=== PATIENT | female | born 1970 | race Caucasian/White ===

== ENCOUNTER 2022-08-15 08:30 | Outpatient (RCR) | payer BC, SELFPAY ==
--- NOTE | 2022-02-28 14:07 | URNOTE ---
Received request for prior auth for Gammagard IVIG ([id number]). Per [facility], this has been approved 02/27/2022-08/14/2022
[2022-03-13 20:54] LABS: Immunoglobulin G 410 mg/dL (768-1632)
[2022-03-14 09:26] LABS: Absolute CD3 1038 cells/uL (570-2400); Absolute CD4:CD8 Ratio 0.84 ratio (0.80-3.90); Absolute CD8 550 cells/uL (210-1200)
--- NOTE | 2022-03-14 15:07 | PC.NURSE ---
Called pt today with lab results. IgG 410 so no need for infusion next week. Pt was scheduled for her next lab visit on 04/09/2022.
[2022-04-11 00:22] LABS: Immunoglobulin G 421 mg/dL (768-1632)
[2022-04-11 13:38] LABS: Absolute CD3 793 cells/uL (570-2400); Absolute CD4:CD8 Ratio 0.81 ratio (0.80-3.90); Absolute CD8 431 cells/uL (210-1200)
[2022-06-04] MEDS: SODIUM CHLORIDE 0.9 % (FLUSH) 10 ML SYRINGE IVF (08:05)
[2022-06-04] MEDS: HEPARIN 500 UNIT/5 ML SYRINGE IVF (08:05)
[2022-06-05 23:53] LABS: Immunoglobulin G 475 mg/dL (768-1632)
[2022-06-06 08:09] LABS: Absolute CD3 705 cells/uL (570-2400); Absolute CD4:CD8 Ratio 0.93 ratio (0.80-3.90); Absolute CD8 362 cells/uL (210-1200)
--- NOTE | 2022-06-06 12:30 | ONC.NURNOTE ---
Reviewed labs with pt; confirmed no IVIG needed as IGG level 475 and ordered parameters are to treat with IVIG if IGG <400. Also reviewed CD4 count is 336; parameter in place for pt to discontinue Bactrim and Acyclovir if CD4 >200. Pt reports she has been off these meds for several months. Labs faxed to Dr. Pineda/Jessica Daniels, RN at [phone]; received confirmation email.
[2022-07-17 22:07] LABS: Immunoglobulin G 504 mg/dL (768-1632)
[2022-07-19 10:44] LABS: Absolute CD3 711 cells/uL (570-2400); Absolute CD4:CD8 Ratio 1.01 ratio (0.80-3.90); Absolute CD8 353 cells/uL (210-1200)
[2022-08-17 14:59] LABS: Absolute CD3 892 cells/uL (570-2400); Absolute CD4:CD8 Ratio 0.79 ratio (0.80-3.90); Absolute CD8 504 cells/uL (210-1200)
[2022-08-17 22:52] LABS: Immunoglobulin G 475 mg/dL (768-1632)
== END 2022-09-08 23:59 | disposition home or self-care (01) ==
LOC: CCIC 08:30
PROVIDERS: PCP Internal Medicine Hematology & Oncology; Referring Provider Internal Medicine Hematology & Oncology; Visit Provider Internal Medicine Hematology & Oncology
DX: C85.90 Non-Hodgkin lymphoma, unspecified, unspecified site (principal)
CPT/HCPCS: 36415; 36591; 82787; 86360; 99211; J1642

== ENCOUNTER 2023-03-10 09:00 | Outpatient (RCR) | payer BC, SELFPAY ==
[2022-10-02 22:55] LABS: Immunoglobulin G 475 mg/dL (768-1632)
[2022-12-10 18:29] LABS: Immunoglobulin G 488 mg/dL (768-1632)
[2023-02-11 17:12] LABS: Absolute CD3 964 cells/uL (570-2400); Absolute CD4:CD8 Ratio 0.85 ratio (0.80-3.90); Absolute CD8 519 cells/uL (210-1200)
[2023-02-11 19:45] LABS: Immunoglobulin G 423 mg/dL (768-1632)
--- NOTE | 2023-02-12 09:33 | PC.NURSE ---
Called pt and LM with lab results. IgG level 423, CD4 440. Per standing orders, NO IVIG needed this month.
== END 2023-03-30 23:59 | disposition home or self-care (01) ==
LOC: CCIC 09:00
PROVIDERS: Referring Provider Internal Medicine Hematology & Oncology; Visit Provider Internal Medicine Hematology & Oncology
DX: C83.00 Small cell B-cell lymphoma, unspecified site (principal)
CPT/HCPCS: 36415; 36591; 82787; 86360; 86361

== ENCOUNTER 2023-11-12 12:45 | Outpatient (RCR) | payer BC, OTHER, MEDICAID, SELFPAY ==
[2023-06-10 19:30] LABS: Absolute CD3 986 cells/uL (570-2400); Absolute CD4:CD8 Ratio 0.95 ratio (0.80-3.90); Absolute CD8 501 cells/uL (210-1200)
[2023-06-10 23:27] LABS: Immunoglobulin G 502 mg/dL (768-1632)
--- NOTE | 2023-06-11 14:07 | PC.NURSE ---
Called pt today with lab results. LM on pt's primary line with limited info and invited a call back with any further questions or info needed. Per orders, no IVIG needed with IgG level of 502.
[2023-07-16 20:12] LABS: Absolute CD3 841 cells/uL (570-2400); Absolute CD4:CD8 Ratio 0.91 ratio (0.80-3.90); Absolute CD8 439 cells/uL (210-1200)
[2023-07-17 16:25] LABS: Immunoglobulin G 529 mg/dL (768-1632)
--- NOTE | 2023-07-31 09:40 | ONC.NURNOTE ---
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 No information yet received from [facility], but orders for IgG lab and IVIG infusions sent. Once this is received, patient was told that this would be discussed with our carpenter packing to determine if appropriate to transfer here and if so how.
--- NOTE | 2023-08-05 14:14 | URNOTE ---
Pascual ([id number]) has been approved by [facility]. 07/22/2023-05/17/2024. Auth #[id number]
[2023-08-14 12:10] LABS: Absolute CD3 862 cells/uL (570-2400); Absolute CD4:CD8 Ratio 0.87 ratio (0.80-3.90); Absolute CD8 455 cells/uL (210-1200)
[2023-08-15 00:24] LABS: Immunoglobulin G 488 mg/dL (768-1632)
--- NOTE | 2023-08-17 10:49 | ONC.NURNOTE ---
Lab results reviewed with patient. No need for IVIG at this time. Patient scheduled for surgery on 09/07 and will call us to set up her next lab draw.
[2023-11-12 14:38] LABS: Basophils Percent Auto 0.5 % (0.0-3.0); Eosinophils Percent Auto 3.4 % (0.0-7.0); Hematocrit 43.4 % (33.0-51.0); Hemoglobin* 13.9 gm/dL (12.0-16.0); Immature Granulocytes Pct Auto 0.2 %; Lymphocytes Percent Auto 25.9 % (20-44); Mean Corpuscular HGB Conc 32 gm/dL (32-36); Mean Corpuscular Hemoglobin 30 pg (26-34); Mean Corpuscular Volume 93 fL (80-100); Monocytes Percent Auto 6.8 % (0.0-11.0); Neutrophils Percent Auto 63.2 % (42.0-72.0); Platelet Count* 227 K/uL (140-440); RDW Coefficient of Variation % 12.6 % (11.5-15.5); Red Blood Count 4.69 m/uL (4.00-5.20); White Blood Count* 4.09 K/uL (4.50-11.00)
[2023-11-12 14:43] LABS: Slide Review Reflex No
[2023-11-12 15:16] LABS: Albumin* 4.6 g/dL (3.3-5.0); Chloride* 110 mmol/L (96-114)
[2023-11-12 15:17] LABS: Potassium* 3.7 mmol/L (3.6-5.1); Sodium* 140 mmol/L (135-149)
[2023-11-12 15:19] LABS: Alkaline Phosphatase* 92 U/L (40-150); Anion Gap 9 mEq/L (7-15); Aspartate Amino Transferase* 22 U/L (12-35); Bilirubin Total* 0.4 mg/dL (0.1-1.5); Blood Urea Nitrogen* 19 mg/dL (7-30); Carbon Dioxide* 21 mmol/L (20-32); Creatinine* 0.8 mg/dL (0.5-1.5); Est. Creatinine Clearance* 85.97; Estimated Glomerular Filt Rate 89 ml/min; Glucose* 89 mg/dL (60-115); Lactate Dehydrogenase* 153 U/L (120-246); Total Protein* 7.7 g/dL (6.0-8.3)
[2023-11-12 15:20] LABS: Alanine Aminotransferase* 19 U/L (4-35); Calcium* 9.2 mg/dL (8.4-10.6)
== END 2023-12-06 23:59 | disposition home or self-care (01) ==
LOC: CCIC 12:45
PROVIDERS: PCP Family Medicine; Referring Provider Family Medicine; Visit Provider Internal Medicine Hematology & Oncology
DX: C83.00 Small cell B-cell lymphoma, unspecified site (principal)
CPT/HCPCS: 36415; 80053; 82787; 83615; 85025; 86360; 99203; 99204

== ENCOUNTER 2023-11-27 09:22 | Outpatient (CLI) | payer OTHER, MEDICAID, SELFPAY ==
--- OUTSIDE RECORDS SUMMARY | 2023-11-27 09:26 | XMS_ITS | Clinical Summary ---
Author Organization [facility] Address [address] [place] [address] Care Team Providers Care Screen Maker Name Role Phone Brianne Kay M.D. Primary Care Provider Source Comments Patient records contain information from all sites at [facility]. For routine questions regarding patient records, call [phone] during business hours, M-F 8:00 AM - 5:00 PM Central Time. Record requests for emergency care only can be directed to [phone] at any time.[facility] Allergies Active Allergy Reactions Criticality Noted Date Comments Jason Huang (Reselect Reaction),Rash 10/05/2012 Gabapentin Other (see comments) 03/13/2010 Other reaction(s): Alopecia Nortriptyline Other (see comments) Medium 11/29/2022 Suicidal Rituximab Anaphylaxis High 04/29/2021 Medications Medication Sig Dispensed Refills Start Date End Date Status levonorgestreL (MIRENA) 20 mcg/24 hours (7 yrs) 52 mg IUD 1 Dose by intrauterine route once. 10/31/2011 Active clotrimazole (LOTRIMIN) 1 % cream 2 (two) times a day as needed. Rash- as needed Active ondansetron (ZOFRAN) 8 mg tablet as needed. 10/08/2020 Active prochlorperazine (COMPAZINE) 10 mg tablet as needed. 10/08/2020 Active rizatriptan (MAXALT) 10 mg tablet as needed. 06/09/2020 Active triamcinolone (KENALOG) 0.1 % cream Apply 1 application topically 2 (two) times a day as needed (Rash). Apply to rash/itch/irritation NOT involving the face or skin folds. Can use up to a maximum of 2 weeks before taking 1 week off. Can repeat if needed. 80 g 3 01/30/2021 Active tacrolimus (PROTOPIC) 0.1 % ointment Apply 1 application topically 2 (two) times a day. Apply to rash/itch/irritation on face or skin folds twice daily as needed. 30 g 3 01/30/2021 Active clonazePAM (KlonoPIN) 0.5 mg tablet Take 0.5 mg by mouth 3 (three) times a day as needed. 12/20/2021 Active buPROPion XL (WELLBUTRIN XL) 150 mg 24 hr tablet Take 150 mg by mouth daily. 09/27/2021 Active Ubrelvy 100 mg tablet tablet as needed. 01/07/2022 Active lidocaine-prilocain e (EMLA) 2.5-2.5 % cream Apply 5 g topically as needed. 12/18/2021 Active topiramate (TOPAMAX) 50 mg tablet Take 50 mg by mouth 2 (two) times a day. 08/12/2021 Active carBAMazepine (TEGretol) 200 mg tablet daily. 08/06/2022 Active FLUoxetine (PROzac) 20 mg capsule daily. 08/12/2022 Active traZODone (DESYREL) 100 mg tablet daily. 08/12/2022 Active clobetasoL (TEMOVATE) 0.05 % cream as directed. 08/06/2022 Active Active Problems Problem Noted Date Diagnosed Date Fatigue 03/13/2022 Lymphoma Splenic Marginal Zone B Cell 01/29/2021 Dysthymia 10/09/2010 Overview: Depression with anxiety Encounters Date Type Department Care Team Description 11/12/2023 Orders Only Department of Oncology in [address] [phone] Constanza Regalado M.D. Malignant Neoplasm Of Overlapping Sites Of Left Female Breast (HCC) (Primary Dx) from Last 3 Months Immunizations Name Administration Dates Next Due Influenza Split 02/02/2012 Influenza, Unspecified 07/06/2015,2011,03/12/2011,2009 SARS-COV-2 (COVID-19) - PFIZ ER BIVALENT TS(Discontinued)(12 YEARS OR OLDER) 03/13/2022 Td (Adult), adsorbed 03/01/2010 Tdap 12/14/2012,09/23/2010 influenza vaccine quad (FLUZONE/FLUARIX) (6 months and older)(PF) 03/13/2022,02/12/2021,02/10/2020,2015,07/06/2015 Family History Medical History Relation Name Comments Psychiatric Brother 2 Cecil Suicide Attempts Daughter Magnolia Breast cancer Father's Sister 1 Sena Breast cancer Father's Sister 2 Yelitza Breast cancer Maternal Grandfather Esdras Prostate cancer Maternal Grandfather Esdras Transient ischemic attack Maternal Grandfather Esdras Anxiety disorder Mother Elis Mega Depression Mother Elis Mega Hyperlipidemia Mother Elis [place]wick Hypertension Mother Elis Mega Breast cancer Mother's Sister Michelle Colon cancer Paternal Grandfather Valadez Breast cancer Paternal Grandmother Edel Multiple sclerosis Sister Coby Relation Name Status Comments Brother 1 cecil Alive Brother 2 Cecil Daughter Magn[place] Father Alive Father's Sister 1 Sena Father's Sister 2 Yelitza Maternal Grandfather Esdras Mother Elis Warwick Alive Mother's Sister Michelle Paternal Grandfather Valadez Paternal Grandmother Edel Sister Coby Alive Social History Tobacco Use Types Packs/Day Years Used Date Smoking Tobacco: Passive Smo ke Exposure - Never Smoker Cigarettes Quit: Smokeless Tobacco: Never Comments:On/off...more with stress Alcohol Use Standard Drinks/Week Comments No 0 (1 standard drink = 0.6 oz pur e alcohol) Humiliation, Afraid, Rape, and Kick questionnair e Answer Date Recorded Within the last year, have y ou been afraid of your partner or ex-partner? No 07/29/2022 Within the last year, have y ou been humiliated or emotionally abused in other ways by your partner or ex-partner? No Within the last year, have y ou been kicked, hit, slapped, or otherwise physically hurt by your partner or ex-partner? No 07/29/2022 Within the last year, have y ou been raped or forced to have any kind of sexual activity by your partner or ex-partner? No 07/29/2022 Social Connection and Isolat ion Panel [NHANES] Answer Date Recorded In a typical week, how many times do you talk on the phone with family, friends, or neighbors? More than three times a week 07/29/2022 How often do you get togethe r with friends or relatives? More than three times a week 07/29/2022 How often do you attend chur ch or advent services? Never 07/29/2022 Do you belong to any clubs o r organizations such as sikhism groups, unions, fraternal or athletic groups, or school groups? No 07/29/2022 How often do you attend meet ings of the clubs or organizations you belong to? Never 07/29/2022 Are you , , di vorced, , never , or living with a partner? 07/29/2022 AUDIT-C Answer Date Recorded Q1: How often do you have a drink containing alc ohol? Never 07/29/2022 Average Number of Drinks Not on file 023 Frequency of Binge Drinking Not on file 07/16 Overall Financial Resource Strain (CARDIA) Answe r Date Recorded How hard is it for you to pa y for the very basics like food, housing, medical care, and heating? Somewhat hard 07/29/2022 PHQ-2 Answer Date Recorded PHQ-2 Score 4 06/08/2022 [facility] - Occupational Stress Questionnaire Answer Date Recorded Do you feel stress - tense, restless, nervous, or anxious, or unable to sleep at night because your mind is troubled all the time - these days? Very much 07/29/2022 Exercise Vital Sign Answer Date Recorde d On average, how many days pe r week do you engage in moderate to strenuous exercise (like a brisk walk)? 3 days 07/29/2022 On average, how many minutes do you engage in exercise at this level? 20 min 07/29/2022 Hunger Vital Sign Answer Date Recorded Within the past 12 months, y ou worried that your food would run out before you got the money to buy more. Sometimes true Within the past 12 months, t he food you bought just didn't last and you didn't have money to get more. Never true PRAPARE - Transportation Answer Date Re corded In the past 12 months, has l ack of transportation kept you from medical appointments or from getting medications? No 07/16 In the past 12 months, has l ack of transportation kept you from meetings, work, or from getting things needed for daily living? No 07/29/2022 Housing Stability Vital Sign Answer Donis e Recorded In the last 12 months, was t here a time when you were not able to pay the mortgage or rent on time? No 07/29/2022 In the last 12 months, how many places have you lived? 1 07/29/2022 In the last 12 months, was t here a time when you did not have a steady place to sleep or slept in a long term (including now)? No 07/29/2022 Depression Answer Date Recor ded PHQ-9 Total Score (max 27) 18 06/08 Nutrition Answer Date Recorded Nutrition: EVOO Fat Source Yes 07/29 On average, how many serving s of fruits and vegetables do you eat per day (serving size is equal to 1 cup or approximately the size of a tennis ball)? 2-3 07/29/2022 Dental Answer Date Recorded Dental: Regular Dentist Yes 01/28/20 Employment Answer Date Recorded Employment status Employed but not working due t o illness or injury 07/29/2022 Education Answer Date Recorded What is the highest level of school you have completed or the highest degree you have received? Associate degree: occupational, technical, or vocational program 07/29/2022 Sex and Gender Information Value Date Recorded Sex Assigned at Female 01/27/2021 1:52 PM CDT Gender Identity Female 01/27/2021 1:52 PM CDT Sexual Orientation Straight 01/27/2021 1: 52 PM CDT Last Filed Vital Signs Vital Sign Reading Time Taken Comments Blood Pressure 165/91 04/10/2023 2:01 PM BOTTLE BLOWER Pulse 80 04/10/2023 2:01 PM BOTTLE BLOWER Temperature 36.1 ??C (97 ??F) 04/10/2023 2:01 PM BOTTLE BLOWER Respiratory Rate 24 09/03/2022 2:33 PM CDT Oxygen Saturation 96% 09/03/2022 2:33 PM CDT Inhaled Oxygen Concentration - - Weight 104 kg (229 lb 4.5 oz) 04/10/2023 2:01 PM BOTTLE BLOWER Height 175.3 cm (5' 9) 04/10/2023 8:12 AM BOTTLE BLOWER Body Mass Index 33.86 04/10/2023 8:12 AM BOTTLE BLOWER Plan of Treatment Health Maintenance Due Date Last Done Comments CT Colonography 1971 Cologuard 1971 FIT 1971 Hepatitis C Screening 1971 Hepatitis B Vaccines (1 of 3 - 19+ 3-dose series) 1990 Zoster Vaccines (1 of 2) 1990 Depression Screening (Annual PHQ-2) 05/18/2023 Influenza Vaccine (#1) 2024 , 03/13/2022, 02/12/2021, Additional history exists Mammogram 06/03/2024 06/03/2023, 05/18, 05/28/2022, Additional history exists Lipid (Cholesterol) Screening 02/09/2025 02/10/2020, 12/16/2016 Fasting Glucose for Diabetes Screening 08/20/2026 08/21/2023, 02/26/2023, 04/28/2022, Additional history exists Cervical Cancer Screening 05/28/20272022, 05/28/2022, 02/17/2020, Additional history exists Colonoscopy 01/10/2031 01/10/2021 Colorectal Cancer Screening 01/10/2031 DTaP,Tdap,and Td Vaccines (4 - Td or Tdap) 03/09/2033 03/09/2023, 12/14/2012, 09/23/2010, Additional history exists HIV Screening Completed 07/30/2022, 10/22/2011 Pneumococcal vaccine (0-64 years) Completed 08/06/2022 COVID-19 Vaccine Completed 03/09/2023, , 03/12/2021, Additional history exists HPV Vaccines Aged Out No longer eligi ble based on patient's age to complete this topic Medical Devices Implanted Type Area Yarn Sizer Device Identifier Shelf Expiration Date Model / Serial / Lot Mrk Brst Biop [facility] Trm - [id number] Implanted:Qty: 1 on 04/04/2021 at [facility] [place] [employer] Imaging Marker Left: Breast [employer] [id number] 11/05/2022 TRIMARKTD 13-MR / / [id number] Implantable Port-10/08/2020 Implanted:09/16 (Quantity not on file) Implantable Port Left: Chest Description:Care Everywhere: [facility]: Medical Devices: Power Port Isp Mri 6fr [id number] - [id number] Implanted: Qty: 1 on 10/08/2020 by Esa Palomo MD at [facility] ?? Left: Chest [employer] Intrauterine Device Intrauterine Device Uterus Description:Mirena IUD Procedures Procedure Name Priority Date/Time Associated Diagnosis Comments EXTI BASIC METABOLIC PANEL, S/P Routine 08/21/2023 12:05 PM CDT BI BREAST SCREENING BILATERAL WITH TOMOSYNTHESIS RAD - Routine (most inpatients and all outpatients) 06/03/2023 8:38 AM BOTTLE BLOWER HIV-1/-2 AG AND AB SCREEN, PLASMA Routine 07/30/2022 1:18 PM CDT Screening For Venereal Disease HPV WITH GENOTYPING, PCR, THINPREP Routine 05/28/2022 2:46 PM BOTTLE BLOWER EXTI LIPID PANEL W REFLEX MEASURED LDL Routine 02/10/2020 8:20 AM CDT from Last 3 Months or Most Recently Relevant to Health Maintenance Results * HIV-1/-2 Ag and Ab Screen, Plasma (07/30/2022 1:18 PM CDT) [facility] HIV-1/-2 Ag and Ab Screen, P Negative Negative 07/30/2022 8:17 PM CDT [facility] Comment: Negative result does not rule out HIV infection. If exposure to HIV infection occurred <14 days ago, contact the laboratory to request addition of HIV-1 RNA detection / quantification test (HIVQN). Blood (Blood, Venous) 07/30/2022 1:18 PM CDT 07/30/2022 5:58 PM CDT Pallavi Ravi APRN, C.N.P. LAB MICROBIO LOGY - BLOOD ORDERABLES [facility] [address] [place] [address] [facility] [address] [place] [address] * (ABNORMAL) HPV with Genotyping, PCR, ThinPrep (05/28/2022 2:46 PM BOTTLE BLOWER) Specimen Source Thin Prep Vial, Cervix/Endoc ervix 06/02/2022 2:23 PM BOTTLE BLOWER DTL HPV High Risk type 16, PCR Negative Negative 06/02/2022 2:23 PM BOTTLE BLOWER DTL HPV High Risk type 18, PCR Negative Negative 06/02/2022 2:23 PM BOTTLE BLOWER DTL HPV other High Risk types, PCR Positive(A) Negative 06/02/2022 2:23 PM BOTTLE BLOWER DTL Comment: Positive for one or more of the following Other High Risk HPV types: 31, 33, 35, 39, 45, 51, 52, 56, 58, 59, 66, and 68 This test was ordered in the context of a [facility] DIRECTOR SAFETY Cytology case; this result should be interpreted within the context of the DIRECTOR SAFETY cytology report. 05/28/2022 2:46 PM BOTTLE BLOWER 05/29/2022 8:29 AM BOTTLE BLOWER Pallavi Ravi APRN, C.N.P. LAB MICROBIO LOGY - GENERAL ORDERABLES [facility] [place] [address] [place] [address], [place] DTL [facility] [address] [place] [address] from Last 3 Months or Most Recently Relevant to Health Maintenance Care Teams Screen Maker Relationship Specialty Start Date End Date Brianne Kay M.D. [address] [place] [address] ANTONIO Hargrove [phone] PCP - General 06/28/20
--- OUTSIDE RECORDS SUMMARY | 2023-11-27 09:26 | XMS_ITS | Encounter Summary ---
Author Organization [facility] Address [address] [place] [address] Care Team Providers Care Field Technical Assistant Name Role Phone Brianne Kay M.D. Primary Care Provider [phone] Encounter Details Date Type Department Care Team (Late st Contact Info) Description 12/04/2015 Historical Ophthalmology [facility] Dennis Wilcox Jr., M.D. [address] [place] [phone] Social History Tobacco Use Types Packs/Day Years Used Date Smoking Tobacco: Never Assessed Sex and Gender Information Value Date Recorded Sex Assigned at Female 01/27/2021 1:52 PM CDT Gender Identity Female 01/27/2021 1:52 PM CDT Sexual Orientation Straight 01/27/2021 1: 52 PM CDT documented as of this encounter Progress Notes * Dennis Wilcox M.D. - 12/04/2015 1:31 PM CDT Eye General CHIEF COMPLAINT Complete Exam HISTORY OF PRESENT ILLNESS Lost glasses- need to replace. Uses +1.50 Readers ROS: Has had a migraine x 6 days. Gets twice a month. IMPRESSION / REPORT / PLAN #1 Myopia and astigmatism RTO 1 year MR DIAGNOSIS #1 Myopia and astigmatism CDM Reports - EYEGEN Id: [id number] Status: Fnl documented in this encounter Plan of Treatment Not on file documented as of this encounter Visit Diagnoses Not on filedocumented in this encounter Additional Health Concerns Assessment Noted Time PHQ-9 Depression Total Score: 7 07/06/19 16 2:14 PM DRYWALL FOREMAN documented as of this encounter Care Teams Field Technical Assistant Relationship Specialty Start Date End Date Brinane Kay M.D. [address] [place] [phone] PCP - General 06/28/20 documented as of this encounter
--- OUTSIDE RECORDS SUMMARY | 2023-11-27 09:26 | XMS_ITS | Encounter Summary ---
Author Organization [facility] Address [address] [place] [address] Care Team Providers Care Case Worker Name Role Phone Brianne Kay M.D. Primary Care Provider [phone] Encounter Details Date Type Department Care Team (Late st Contact Info) Description 11/12/2023 Orders Only Department of Oncology in [place], [place] [address] [place] [phone] Constanza Regalado M.D. [address] [place] [address] Malignant Neoplasm Of Overlapping Sites Of Left Female Breast (HCC) (Primary Dx) Social History Tobacco Use Types Packs/Day Years [...] often do you attend chur ch or uatsdin services? Never 07/29/2022 Do you belong to any clubs o r organizations such as anglican groups, unions, fraternal or athletic groups, or [...] Date Recorded PHQ-2 Score 4 06/08/2022 [facility] - Occupational Stress Questionnaire Answer Date Recorded [...] place to sleep or slept in a chcf (including now)? No 07/29/2022 Depression Answer Date [...] Date Recorded Dental: Regular Dentist Yes 01/28/20 21 Employment Answer Date Recorded Employment status Employed [...] PM CDT documented as of this encounter Plan of Treatment Not on file documented as of this encounter Visit Diagnoses Diagnosis Malignant Neoplasm Of Overlapping Sites Of Left Female Breast (HCC)- Primary documented in this encounter Additional Health Concerns Assessment Noted Time PHQ-9 Depression Total Score: 18 023 2:49 PM SUBSTANCE ABUSE SERVICES DIRECTOR documented as of this encounter Care Teams Case Worker Relationship Specialty Start Date End Date Brianne Kay M.D. [address] [place] [address] [place] [phone] PCP - General 06/28/20 documented as of this encounter
--- OUTSIDE RECORDS SUMMARY | 2023-11-27 09:26 | XMS_ITS ---
Author Organization [facility] Address [address] [place] [address] Care Team Providers Care Bay Stocker Name Role Phone Unavailable Unavailable Unavailable Surgery Details Not on file Complications Check Surgery Details section. Procedure Estimated Blood Loss Check Surgery Details section. Procedure Findings Check Surgery Details section. Procedure Specimens Taken Check Surgery Details section.
--- OUTSIDE RECORDS SUMMARY | 2023-11-27 09:26 | XMS_ITS | Clinical Summary ---
Author Organization [employer] [facility] Address [place], [place] [address] Care Team Providers Care Arc Cutter Plasma Arc Name Role Phone Refugio Davidson RN Unavailable Unavailable Elenita Dietrich MD Unavailable Brianna La LINUX PROGRAMMER Unavailable Xi Bautista MD Primary Care Provi clarita Reyna Alonso LINUX PROGRAMMER Unavailable Unavailab Carolina Atkins PsyD, LP Unavailable [phone] [facility], [place] Unavailable Allergies Active Allergy Reactions Criticality Noted Date Comments Codeine Rash Medium 05/08/2014 Gabapentin Alopecia Medium 05/08/2014 Nortriptyline Other - Describe In Comment Field Medium 01/08/2023 Suicidal Medications Medication Sig Dispensed Refills Start Date End Date Status LEVONORGESTREL (MIRENA IU)Indications:pregn vonda contraceptive Active clonazePAM (KLONOPIN) 0.5 mg tabletIndications:Ge neralized anxiety disorder Take 1 tab two times daily as needed for anxiety/panic 60 Tablet 1 11/11/2022 Active FLUoxetine (PROZAC) 40 mg capsuleIndications:M oderate episode of recurrent major depressive disorder (HC),Generalized anxiety disorder Take 1 Capsule (40 mg) by mouth once daily. 90 Capsule 1 01/06/2023 Active eszopiclone (LUNESTA) 1 mg tablet Take 2 mg by mouth at bedtime. 03/13/2023 Active modafiniL (PROVIGIL) 100 mg tablet Take 100 mg by mouth every morning. 03/13/2023 Active buPROPion (WELLBUTRIN XL) 150 mg Extended-Release tablet Take 150 mg by mouth every morning. Active hydrOXYzine pamoate (VISTARIL) 25 mg capsule Take 25 mg by mouth 2 times daily if needed for Anxiety. 04/13/2023 Active FLUoxetine 20 mg tablet Take 20 mg by mouth every morning. Take with the 40 mg tablet for a total of 60 mg. Active diclofenac topical (VOLTAREN) 1 % gelIndications:Prima ry osteoarthritis of left knee Apply 2 g topically to affected area(s) four times daily. 450 g 1 06/30/2023 Active rizatriptan (MAXALT) 10 mg tabletIndications:In tractable chronic migraine without aura and without status migrainosus Take 1 Tablet (10 mg) by mouth every 2 hours if needed for Migraine. Give at minimum 2hrs apart. Max Dose: 30mg per 24hrs. 12 Tablet 3 07/03/2023 Active WalkerIndications:Ce rvical stenosis of spinal canal Rolling Walker for home use for 3 months 1 Each 09/09/2023 Active acetaminophen (TYLENOL EXTRA STRGTH) 500 mg tabletIndications:Ce rvical stenosis of spinal canal Take 2 Tablets (1,000 mg) by mouth every 6 hours if needed for Pain. Max acetaminophen dose: 4000mg in 24 hrs. 50 Tablet 09/09/2023 Active ondansetron (ZOFRAN ODT) 4 mg disintegrating tabletIndications:Ce rvical stenosis of spinal canal Place 1 Tablet (4 mg) on the tongue every 8 hours if needed for Nausea/Vomiting. 10 Tablet 09/09/2023 Active oxyCODONE (ROXICODONE) 5 mg immediate release tabletIndications:Ce rvical stenosis of spinal canal Take 1-2 Tablets (5-10 mg) by mouth every 6 hours if needed for Pain (First choice for severe pain.). 20 Tablet 09/09/2023 Active docusate (COLACE) 100 mg capsuleIndications:C ervical stenosis of spinal canal Take 1 Capsule (100 mg) by mouth once daily if needed for Constipation. 20 Capsule 09/09/2023 Active methocarbamoL (ROBAXIN) 750 mg tabletIndications:Ce rvical stenosis of spinal canal Take 1 Tablet (750 mg) by mouth every 6 hours if needed for Muscle Spasm. 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 ctors 03/21/2014 Dysthymia 10/09/2010 Overview: Depression with anxiety Resolved Problems Problem Noted Date Diagnosed Date Resolved Date Dysthymia 10/09/2010 07/10/2023 Overview: Overview: Depression with anxiety Encounters Date Type Department Care Team Description 11/26/2023 9:20 AM CDT Office Visit [facility] [address] [place] [address] Radha Vaughan, EMILIANO Eye Exam 11/25/2023 Travel 11/23/2023 Travel 10/30/2023 Telephone [facility] [address] [place], [place] [phone] Brianna La, LINUX PROGRAMMER Appointment 10/10/2023 Home Care Visit [facility] [address] [place] [phone] Tiffanie Brewer, RN CARE COORDINATION 10/05/2023 Telephone [facility] [address] [place] [address] Magalie Freeman RN Appointment 10/01/2023 9:58 AM CDT - 10/01/2023 11:59 PM CDT Hospital Encounter [facility] [address] [place] [address] Marginal zone lymphoma (HC) 10/01/2023 Travel 09/29/2023 Telephone [facility] [address] [place] [address] Brianna La, HAKAN Appointment 09/28/2023 Telephone [facility] [address] [place] [address] Brianna La, LINUX PROGRAMMER Appointment 09/15/2023 9:40 AM CDT Office Visit [facility] [address] [place] [address] Tangela Leon, Hospital F/U (Discharged from [facility] on 09/09/23. Spinal surgery) 09/15/2023 Refill [facility] [address] [place] [address] Tangela Leon DO Refill Request (Oxycodone) 09/15/2023 Telephone [facility] [address] [place] [address] Tangela Leon DO 09/14/2023 Home Care Visit [facility] [address] [place] [address] Tiffanie Brewer, RN CARE COORDINATION 09/14/2023 Home Care Visit [facility] [address] [place] [phone] Tiffanie Brewer, RN SN - NOT TAKEN UNDER HOME CARE - HOME VISIT 09/14/2023 Travel 09/13/2023 Home Care Visit [facility] [address] [place] [phone] Tiffanie Brewer, RN CARE COORDINATION 09/13/2023 Home Care Visit [facility] [address] [place] [address] Tiffanie Brewer, RN CARE COORDINATION 09/12/2023 Home Care Visit [facility] [address] [place] [address] Tiffanie Brewer, RN CARE COORDINATION 09/11/2023 Home Care Visit [facility] [address] [place] [address] Tiffanie Brewer, RN CARE COORDINATION 09/10/2023 Patient Outreach [address] [phone] Renu Nolan, RN Primary RN Care Management (Cervical stenosis ); Hospital F/U (09/09/2023) 09/08/2023 7:39 AM CDT Anesthesia Event [facility] [address] [place] [address] Tangela Gale CRNA Lynch, James Jeffrey, MD 09/08/2023 7:30 AM CDT - 09/08/2023 12:24 PM CDT Surgery [facility] [address] [place] [address] Dorian Gallagher MD Anterior Cervical Decompression Fusion C5 to: C7 09/08/2023 5:35 AM CDT - 09/09/2023 3:05 PM CDT Hospital Encounter [facility] [address] [place] [address] Dorian Gallagher MD Cervical stenosis of spinal canal (Primary Dx) Discharge Disposition: Home Health 09/07/2023 Travel from Last 3 Months Immunizations Name Administration Dates Next Due COVID-19 Vaccine Spikevax (M oderna 50mcg/0.5mL) 12YO+ 2405-5431 Formula PF 03/09/2023 COVID-19 vaccine ([employer] 30mcg/0.3mL) PF MDV 03/12/2021,07/21/2020,06/30/2020 DTaP 12/14/2012 Influenza, IIV3 (Age >=3 years) 07/06/2015,03/09 Influenza, IIV4 03/09/2023, 2,02/12/2021,2019,07/06/2015 Pneumococcal Conj 20-valent (Prevnar 20) 08/06/2022 Td (Age >=7 Years) 03/01/2010 Tdap 03/09/2023, 3,09/23/2010,2009 Family History Medical History Relation Name Comments Bipolar disorder Brother Good Health Father Cancer-breast Maternal Aunt Cancer-prostate Maternal Grandfather Cancer-breast Maternal Grandmother Cardiomyopathy Mother Coronary artery disease Mother Cancer Other grandparents an d aunts with breast, colon, prostate cancers Cancer-breast Paternal Aunt 1 Cancer-breast Paternal Aunt 2 Cancer-colon Paternal Grandfather Cancer-breast Paternal Grandmother Diabetes Paternal Grandmother Hypertension Paternal Grandmother Multiple sclerosis Sister Anesthesia Problem No Family History Clotting disorder No Family History Relation Name Status Comments Brother Father Maternal Aunt Maternal Grandfather Maternal Grandmother Mother Other Paternal Aunt 1 Paternal Aunt 2 Alive Paternal Grandfather Paternal Grandmother Sister Social History Tobacco Use Types Packs/Day Years Used Date Smoking Tobacco: Some Days Cigarettes Last attempted to quit: 10/26/2020 Passive Smoke Exposure: Never Smokeless Tobacco: Never Tobacco Cessation:Ready to Q uit: Not Asked; Counseling Given: Not Answered Alcohol Use Standard Drinks/Week Comments No 0 (1 standard drink = 0.6 oz pur e alcohol) PHQ-2 Answer Date Recorded PHQ-2 TOTAL SCORE 5 06/16/2023 Social Connections Answer Date Recorded Frequency of Communication with Friends and Fami ly 4 03/09/2023 Financial Resource Strain Answer Date R ecorded Difficulty of Paying Living Expenses 3 03/09/2023 Difficulty of Paying Living Expenses Not on file 03/09/2023 Food Insecurity Answer Date Recorded Worried About Running Out of Food in the Last Ye ar 1 03/09/2023 Transportation Needs Answer Date Record ed Lack of Transportation (Medical) 1 03/09/2023 Housing Stability Answer Date Recorded Unable to Pay for Housing in the Last Year 1 03/09/2023 Sex and Gender Information Value Date Recorded Sex Assigned at Not on file Gender Identity Not on file Sexual Orientation Not on file Travel History Travel Start Travel End [place] 10/15/2023 11/02/2023 Obstetrics History Last Filed Vital Signs Vital Sign Reading Time Taken Comments Blood Pressure 138/92 09/15/2023 10:01 AM CDT Pulse 72 09/15/2023 10:01 AM CDT Temperature 36.8 ??C (98.3 ??F) 09/09/2023 7:35 AM CD T Respiratory Rate 12 09/15/2023 10:0 1 AM CDT Oxygen Saturation 96% 09/09/2023 7:35 AM CDT Inhaled Oxygen Concentration - - Weight 110.8 kg (244 lb 4.8 oz) 024 10:01 AM CDT Height 175.3 cm (5' 9) 09/08/2023 6:32 AM CDT Body Mass Index 36.08 09/08/2023 6:32 AM CDT Plan of Treatment Upcoming Encounters Date Type Department Care Team (Late st Contact Info) Description 11/30/2023 8:45 AM CDT Telemedicine [facility] [address] [place] [address] Carolina Mathur PsyD, [address] [place] [address] 11/30/2023 4:40 PM CDT Office Visit [address] [phone] Marcelino Hdz MD [address] [place] [address] 12/08/2023 8:30 AM CDT Office Visit [address] [phone] Renetta Sheffield PA [address] [place] [address] 01/05/2024 9:50 AM CDT Office Visit [address] [phone] Xi Bautista MD [address] [place] [address] [place] [address] Health Maintenance Due Date Last Done Comments Zoster (shingles) series for age 50+ (1 of 2) 1990 Pap test for age 21-65 02/16/2023 02/17/2020 COVID-19 vaccine series (2022-24 season) 2023 03/09/2023, 03/13/2022, 03/12/2021, Additional history exists Influenza for age 50-64 01/17/2024 03/09/20, 03/13/2022, 02/12/2021, Additional history exists Mammogram for age 45-75 06/03/2024 06/03/19 24, 05/28/2022 (Verified in Care Everywhere or Patient Record), 03/13/2020 Depression screening for age 12+ 06/16/2024 06/16/2023, 03/31/2023, 03/30/2023, Additional history exists BMI (ht and wt on same day) for age 18+ 08/20/2024 08/21/2023, 08/15/2022, 06/04/2022, Additional history exists Lipids for age 45-75 02/09/2025 02/10/2020 Colonoscopy through age 75 01/10/2031 01/10/2021 Tetanus booster 03/09/2033 03/09/2023, 11/17, 09/23/2010, Additional history exists HIV for age 15-65 Completed 09/14/2020 Hepatitis C screening for ag e 18-79 Completed 09/14/2020 Pneumococcal series for age 6-64 Completed 08/07/19 23 Tdap Completed 03/09/2023, 11/17, 09/23/2010, Additional history exists Medical Devices Implanted Type Area Nail Galvanizer Device Identifier Shelf Expiration Date Model / Serial / Lot Stent Uret [id number] Contour - [id number] Implanted:Qty: 1 on 03/19/2016 by Anup Valentin MD at [facility] Left: Ureter BS Urology 05/18/2017 [id number] / / [id number] Power Port Isp Mri 6fr [id number] - [id number] Implanted:Qty: 1 on 10/08/2020 by Esa Palomo MD at [facility] Left: Chest [employer] 10/15/2021 [id number] / / [id number] Stent Uret [id number] Silhouette - [id number] Implanted:Qty: 1 on 11/04/2020 by Quinn Mooney MD at [facility] Right: Ureter [employer] Arnulfo 09/16/2021 [id number] / / [id number] Spacer Lordotic Md 8mm 6 Deg Nanolock Tc - [id number] Implanted:Qty: 1 on 09/08/2023 by Dorian Gallagher MD at [facility] N/A: Spine Medtronic Spine/Ortho 10/24/2027 [id number] / / [id number] Spacer Lordotic Md 8mm 6 Deg Nanolock Tc - [id number] Implanted:Qty: 1 on 09/08/2023 by Dorian Gallagher MD at [facility] N/A: Spine Medtronic Spine/Ortho 10/24/2027 [id number] / / [id number] Screw Cerv Ant 4x15mm [employer] Slf Drill - [id number] Implanted:Qty: 6 on 09/08/2023 by Dorian Gallagher MD at [facility] N/A: Spine Medtronic Spine/Ortho [id number] / / Plate Cerv 2lvl 37.5mm Middleway Vision Elite Ant - [id number] Implanted:Qty: 1 on 09/08/2023 by Dorian Gallagher MD at [facility] N/A: Spine Medtronic Spine/Ortho [id number] / / Procedures Procedure Name Priority Date/Time Associated Diagnosis Comments CD4 COUNT FOR IMMUNE MONITORING, BLOOD Today 10/01/2023 10:08 AM CDT Marginal zone lymphoma (HC) IGG STAT 10/01/2023 10:08 AM CDT Marginal zone lymphoma (HC) XR SPINE CERVICAL 2 VIEWS Routine 09/09/2023 11:31 AM CDT XR C-ARM EQUAL OR GREATER 2 HR Routine 09/08/2023 12:04 PM CDT XR SPINE 1 VIEW PORTABLE Routine 09/08/2023 12:03 PM CDT ARTERIAL LINE Routine 09/08/2023 11:36 AM CDT ARTERIAL LINE Routine 09/08/2023 11:36 AM CDT ARTERIAL LINE Routine 09/08/2023 11:36 AM CDT ARTERIAL LINE Routine 09/08/2023 11:36 AM CDT ARTERIAL LINE Routine 09/08/2023 11:36 AM CDT ARTERIAL LINE Routine 09/08/2023 11:36 AM CDT ENDOTRACHEAL TUBE Routine 09/08/2023 8:1 0 AM CDT ENDOTRACHEAL TUBE Routine 09/08/2023 8:1 0 AM CDT ENDOTRACHEAL TUBE Routine 09/08/2023 8:1 0 AM CDT FUSION DISCECTOMY ANTERIOR CERVICAL 02 09/08/2023 7:29 AM CDT 1) Stenosis, Cervical M48.022) Myelopathy G95.9 Case Notes IOM, LORRIE, 4085, PEEK vs BONE, TYPE & SCREEN Preop 09/08/2023 6:41 AM CDT SCAN-CARDIAC STRIP 09/08/2023 12 :00 AM CDT XR MAMMO EDOUARD BILAT SCREEN Routine 06/03/2023 8:38 AM SEWER PIPE LAYER HELPER Encounter for screening mammogram for malignant neoplasm of breast COLONOSCOPY 01/10/2021 2:43 PM CDT ANTI HIV 1/2 Routine 09/14/2020 9:18 AM CDT Abdominal pain, RUQ (right upper quadrant) Lymphocytosis Fatigue, unspecified type Headache disorder Anemia of unknown etiology Screen for STD (sexually transmitted disease) ANTI HCV Routine 09/14/2020 9:18 AM CDT Abdominal pain, RUQ (right upper quadrant) Lymphocytosis Fatigue, unspecified type Headache disorder Anemia of unknown etiology Screen for STD (sexually transmitted disease) INVESTIGATOR OPERATOR THIN PREP PAP SCREEN IMAGED Routine 02/17/2020 9:13 AM CDT Screening for malignant neoplasm of cervix LIPID PANEL W REFLEX MEASURED LDL Routine 02/10/2020 8:20 AM CDT Lipid screening from Last 3 Months or Most Recently Relevant to Health Maintenance Results * (ABNORMAL) CD4 COUNT FOR IMMUNE MONITORING, BLOOD (10/01/2023 10:08 AM CDT) CD45 Total Lymph Count 0.81(L) 0.82 - 2.84 thou/mcL 10/02/2023 5:59 PM CDT [facility] % CD3 (T CELLS) 80 58 - 86 % 4 5:59 PM CDT [facility] CD3 (T CELLS) 643 550 - 2202 cells/mcL 10/02/2023 5:59 PM CDT [facility] % CD4 (T CELLS) 39 32 - 64 % 4 5:59 PM CDT [facility] CD4 (T CELLS) 315(L) 365 - 1437 cells/mcL 10/02/2023 5:59 PM CDT [facility] % CD8 (T CELLS) 40 11 - 40 % 4 5:59 PM CDT [facility] CD8 (T CELLS) 325 117 - 846 cells/[facility] 10/02/2023 5:59 PM CDT [facility] 08/23 Ratio 1.0 >=0.9 10/02/2023 5:59 PM CDT [facility] Comment: This test was developed using an analyte specific reagent. Its performance characteristics were determined by [facility] in a manner consistent with CLIA requirements. This test has not been cleared or approved by the U.S. Food and Drug Administration. Test Performed by: [facility] [address] [place] [address] Director Long Term Care: Quinn Gar M.D. Ph.D.; CLIA# [id number] Blood BLOOD SPECIMEN / Unknown Butterfly / Unknown 10/01/2023 10:08 AM CDT 10/01/2023 10:08 AM CDT Doctor Unknown SEND OUTS Performing Organization Address [facility]/ZIP Co de Phone Number [facility] [address] [place] [address], * (ABNORMAL) IGG (10/01/2023 10:08 AM CDT) IGG 420.02(L) 610.30 - 1,616.00 mg/dL 10/02/2023 1:06 PM CDT [facility] Blood BLOOD SPECIMEN / Unknown Butterfly / Unknown 10/01/2023 10:08 AM CDT 10/01/2023 10:08 AM CDT Doctor Nonstaff CHEMISTRY Performing Organization Address [facility] Co de Phone Number [facility] [address] [place] [address], * XR SPINE CERVICAL 2 VIEWS (09/09/2023 11:31 AM CDT) Anatomical Region Laterality Modality CERVICAL SPINE Digital Radiogra phy Narrative 09/09/2023 5:22 PM CDT Indication: Postop follow-up. Comparison: 28 November 2015. Technique: 2 views cervical spine. Pression: Interbody and anterior plate and screw fixation C5-C7. ??Partial laminectomy changes C5 and C6. ??Prevertebral soft tissues are normal. ?? Anatomic alignment. Jerald ZIEGLER [facility] * XR C-ARM EQUAL OR GREATER 2 HR (09/08/2023 12:04 PM CDT) Anatomical Region Laterality Modality Other Narrative 09/08/2023 8:20 AM CDT 10 seconds fluoroscopy time was provided. ??See operative/procedure report for further information. Dorian Gallagher MD FLUOROSCOPY * XR SPINE 1 VIEW PORTABLE (09/08/2023 12:03 PM CDT) Anatomical Region Laterality Modality Spine, CERVICAL SPINE, THORACIC SPINE, LUMBAR SP INE Digital Radiography Narrative 09/08/2023 3:40 PM CDT Indication: Spinal localization. Technique: Multiple radiographs of the cervical spine. Findings/impression: Spinal localization device projects anterior to the C5-6 vertebral body segments. Dorian Gallagher MD GENERAL IMAGING * HCHG CATH PR5, HCHG TUBING PR1, HCHG TUBING PR20, HCHG DRSG PR1, HCHG DRSG PR5, HCHG KIT PR5 (09/08/2023 11:36 AM CDT) Narrative Ethan Machado MD - 09/08/2023 11:36 AM CDT Ethan Machado MD ? 09/08/2023 11:37 AM Arterial Line Patient location during procedure: OR Start time: 09/08/2023 8:00 AM End time: 09/08/2023 8:04 AM Indications: monitoring Staffing Preanesthetic Checklist Completed: patient identified, risks and benefits discussed and consent obtained Arterial Line Patient position: supine. ??Comment:. Laterality: right Site: radial Securement/dressing: Biopatch applied, dressing applied. ??Comment: Supplemental O2: supplemental oxygen. ??Comment:. Vessel Pain Coordinator Additional supplies used to locate vessel: no Needle Catheter size: 20 G. ??Comment:. Catheter length: 4.5 cm. ??Comment: Events: no complications. Ethan Machado MD ANESTHESIA PX NOT E ORDERABLES * HCHG TUBE PR1, HCHG INSTRUMENT DISP PR10, HCHG STYLET PR1 (09/08/2023 8:10 AM CDT) Narrative Tangela Gale CRNA - 09/08/2023 8:10 AM CDT Tangela Gale CRNA ? 09/08/2023 ??8:14 AM Procedure: ETT Patient location during procedure: OR ETT Properties Mask Ventilation: easy Final Technique: video laryngoscopy Type: straight Location: oral Cuffed: yes Tube Size: 7.0 mm Stylet: yes Laryngoscope Blade: Glidescope Blade Size: 3 Cormack-Lehane Grade View: 1 Insertion Attempts: 1 Placement Verification: auscultation, end tidal CO2, symmetrical chest wall movement and cuff palpation Assessment: pharynx clear, atraumatic and dentition unchanged Secured at: 22 Measured From: teeth Bite Block: soft (placed by neuromonitoring) Difficulty: 0 (not difficult) Ethan Machado MD ANESTHESIA PX NOT E ORDERABLES * Type and Screen (09/08/2023 6:41 AM CDT) ABORH O Rh Positive 09/08/2023 7:37 AM CDT [facility]-CENTRAL LAB BLOOD BANK ANTIBODY SCREEN Negative Negative 09/08/2023 7:37 AM CDT [facility] SPECIMEN EXPIRATION DATE/TIME 09/11/23 23:59 09/08/2023 7:37 AM CDT [facility] Blood BLOOD SPECIMEN / Unknown Butterfly / Unknown 09/08/2023 6:41 AM CDT 09/08/2023 6:50 AM CDT Dorian Gallagher MD BLOOD BANK [facility]-C[facility]AL LAB BLOOD BANK [address] [place] [address], * SCAN-CARDIAC STRIP (09/08/2023 12:00 AM CDT) Narrative 09/08/2023 12:00 AM CDT Ordered by an unspecified provider. Other Clinical Staff OTHER * XR MAMMO EDOUARD BILAT SCREEN (06/03/2023 8:38 AM SEWER PIPE LAYER HELPER) Anatomical Region Laterality Modality BREASTS, Breast Left, Breast Right Bilateral Mammography Impressions 06/03/2023 8:48 AM SEWER PIPE LAYER HELPER ??There is no radiographic evidence for malignancy. ??Recommend annual mammograms. MAMMOGRAM ASSESSMENT: ??ACR 2 Benign PATIENTS: You will also receive a letter with your examination results in an easy to read format. ??If you have questions about your results, please contact your referring provider. Narrative 06/03/2023 8:48 AM SEWER PIPE LAYER HELPER For Patients: As a result of the Cures Act, medical imaging exams and procedure reports are released immediately into your electronic medical record. You may view this report before your referring provider. If you have questions, please contact your health care provider. XR MAMMO EDOUARD BILAT SCREEN [[id number]] CLINICAL HISTORY: ??This is an asymptomatic 52 y.o. patient. INDICATION FOR EXAM: Mammogram Screening. TECHNIQUE: CC & MLO views were obtained. ??This study was evaluated with the assistance of Computer-Aided Detection. Breast Tomosynthesis was used in interpretation. COMPARISON FILMS: Yes 03/13/20 ? FINDINGS: ??The breasts are heterogeneously dense, which may obscure small masses. ??No suspicious masses or microcalcifications. ??Post biopsy changes of both breasts. Xi Bautista MD MAMMO * COLONOSCOPY (01/10/2021 2:43 PM CDT) 01/10/2021 2:43 PM CDT Narrative Transcriptions Ernie Valdez DO - 01/10/2021 3:28 PM CDT Patient Name: Brianna Cheema Procedure Date: 01/10/2021 Gender: Female Date of : 1970 Admit Type: Ambulatory Procedure: Colonoscopy Proceduralist: Ernie Valdez MD [facility] Indications/Pre-Op Diagnosis: Screening for colorectal malignant neoplasm, This is the patient's first colonoscopy Medications: Propofol per Anesthesia Procedure Description: The patient had risks, benefits and alternatives explained to andgave informed consent. The patient had a stable cardiopulmonary status and judged an adequate candidate for conscious sedation. The colonoscope was passed through the anus and advanced to thececum, identified by appendiceal orifice and ileocecal valve. Thecolonoscopy was performed without difficulty. The patient tolerated the procedure well. The quality of the bowel preparation was good. The ileocecal valve, appendiceal orifice, and rectum were photographed. Complications: No immediate complications. Estimated Blood Loss & Specimen: Estimated blood loss was minimal. Specimen collected - Yes and sent to Laboratory Findings: A 4 mm polyp was found in the transverse colon. The polyp wassessile. The polyp was removed with a cold biopsy forceps. Resection and retrieval were complete. Verification of patient identification forthe specimen was done. Estimated blood loss was minimal. Non-bleeding internal hemorrhoids were found during retroflexion. The hemorrhoids were Grade I (internal hemorrhoids that do notprolapse). Impressions/Post-Op Diagnosis: - One 4 mm polyp in the transverse colon, removed with a cold biopsy forceps. Resected and retrieved. - Non-bleeding internal hemorrhoids. Recommendation: - Discharge patient to home. - Patient has a contact number available for emergencies. The signsand symptoms of potential delayed complications were discussed with the patient. Return to normal activities tomorrow. Written discharge instructions were provided to the patient. - High fiber diet. - Continue present medications. - Await pathology results. - Repeat colonoscopy in 5-10 years for surveillance based onpathology results. Moderate Sedation: Moderate (conscious) sedation was personally administered by an anesthesia professional. The following parameters were monitored:oxygen saturation, heart rate, blood pressure, and response to care. Ernie Valdez MD 01/10/2021 3:28:12 PM This report has been signed electronically. Note Initiated On: 01/10/2021 2:43 PM Ernie Valdez DO PROCEDURE ORD * ANTI HCV (09/14/2020 9:18 AM CDT) [facility] HEPATITIS C ANTIBODY Non-React darlyn Non-React darlyn 09/14/2020 5:08 PM CDT [facility] Comment:Antibodies to HCV no t detected; does not exclude the possibility of exposure to HCV. Blood BLOOD SPECIMEN / Unknown Venipuncture / Unknown 09/14/2020 9:18 AM CDT 09/14/2020 9:21 AM CDT Melody Fine MD SEND OUTS Performing Organization Address City/[facility] Co de Phone Number [facility] [address] [place] [address], * ANTI HIV 1/2 (09/14/2020 9:18 AM CDT) [facility] HIV-1/HIV-2 ANTIBODY Non-Reacti ve Non-Reacti ve 09/14/2020 5:13 PM CDT [facility] Comment:HIV-1 p24 and HIV-1/ HIV-2 Ab not detected. Blood BLOOD SPECIMEN / Unknown Venipuncture / Unknown 09/14/2020 9:18 AM CDT 09/14/2020 9:21 AM CDT Melody Fine MD SEND OUTS [facility] [address] * INVESTIGATOR OPERATOR THIN PREP PAP SCREEN IMAGED [[id number]] (02/17/2020 9:13 AM CDT) [facility] Case Report Gynecologic Cytology Report ? Case: [id number] ? Authorizing Provider: ??Melody Fine MD ? Collected: ? 02/17/2020 0913 ? Ordering Location: ? [facility] ?Received: ?02/17/2020912 ? Clinic ? First Screen: ?Chapito Arriaga ? Specimen: ?INVESTIGATOR OPERATOR ThinPrep Vial Screening, Cervical ? 02/29/2020 2:57 PM CDT [facility]-C ENTRAL LABORATORY INTERPRETATION/ RESULT NEGATIVE FOR INTRAEPITHELIAL LESION OR MALIGNANCY (NIL) (none) 02/29/2020 2:57 PM CDT [facility]-C ENTRAL LABORATORY NISM(S) Fungal organisms morphologically consistent with Samia species 02/29/2020 2:57 PM CDT [facility]-C ENTRAL LABORATORY SPECIMEN ADEQUACY Satisfactory for evaluation No endocervical component seen 02/29/2020 2:57 PM CDT [facility]-C ENTRAL LABORATORY HPV REQUEST HPV if ASCUS 02/29/2020 2:57 PM CDT [facility] Date of LMP IUD 02/29/2020 2:57 PM CDT [facility] Last Pap Date Unknown 02/29/2020 2:57 PM CDT [facility] Last Pap Result First Pap/Unknown 2:57 PM CDT [facility] Abnormal Pap or [place] Bx in last 5 years No 02/29/2020 2:57 PM CDT [facility] Menstrual Status Irregular Periods 02/29/2020 2:57 PM CDT [facility] EN[facility] [place] Bx Done Today No 02/29/2020 2:57 PM CDT [facility] ENTRME LABORATORY Additional Information None given 02/29/2020 2:57 PM CDT [facility] Comment: Cytology is screened at [facility] - [address], [place] [address] and [facility] - [address] [place] [address] and [facility] - [address] [place] [address] Interpreted at [facility] - [address], [place] [address] Automated Review Successful 02/29/2020 2:57 PM CDT [facility] EN[facility] Comment:Specimen processed s uccessfully by automated child neurologist device, ThinPrep Imaging System, [employer] Note The pap test is a screening technique, not a diagnostic procedure. It is used primarily to screen for squamous cancers and precursor lesions. Published studies have shown that it is subject to both false negative and false positive results. The pap test should not be used as the sole means to diagnose or exclude pre-malignant and malignant lesions. 02/29/2020 2:57 PM CDT [facility] Other (Cervical) Non-Blood / Unknown 02/17/2020 9:13 AM CDT 02/17/2020 9:13 AM CDT Melody Fine MD PATHOLOGY/CYTOLOGY [facility]-CENTRAL LABORATORY [address] [place] [address], [place] * LIPID PANEL W REFLEX MEASURED LDL (02/10/2020 8:20 AM CDT) CHOLESTEROL,TOTAL 114 100 - 199 mg/dL 02/10/2020 8:59 AM CDT [facility] TRIGLYCERIDES 43 <150 mg/dL 02/10/2020 8:59 AM CDT [facility] HDL CHOLESTEROL 41 >40 mg/dL 0 8:59 AM CDT [facility] NON-HDL CHOLESTEROL 73 <145 mg/dl 02/10/2020 8:59 AM CDT [facility] CHOL/HDL RATIO 2.78 <4.50 02/10/2020 8:59 AM CDT [facility] LDL CHOLESTEROL 64 <=130 mg/dL 02/10/2020 8:59 AM CDT [facility] PROVIDER ORDERED STATUS RANDOM 02/10/2020 8:59 AM CDT [facility] Blood BLOOD SPECIMEN / Unknown Venipuncture / Unknown 02/10/2020 8:20 AM CDT 02/10/2020 8:20 AM CDT Melody Fine MD CHEMISTRY [facility] [address] [place] [address] from Last 3 Months or Most Recently Relevant to Health Maintenance Advance Directives * Full Code (Latest Code Status on File) Date Activated Date Inactivated Comments 09/08/2023 2:48 PM 09/09/2023 5:06 PM Question Answer Comments Code Status Discussion: Reviewed Preferences * Full Code Date Activated Date Inactivated Comments 01/10/2021 12:32 PM 01/10/2021 6:14 PM Question Answer Comments Code Status Discussion: Discussed * Full Code Date Activated Date Inactivated Comments 11/03/2020 11:00 PM 11/06/2020 6:03 PM Question Answer Comments Code Status Discussion: Not Discussed * Full Code Date Activated Date Inactivated Comments 10/08/2020 11:09 AM 10/08/2020 4:44 PM Question Answer Comments Code Status Discussion: Not Discussed * Full Code Date Activated Date Inactivated Comments 09/24/2020 9:33 AM 09/25/2020 2:28 AM Question Answer Comments Code Status Discussion: Per Existing Order Care Teams Arc Cutter Plasma Arc Relationship Specialty Start Date End Date Xi Bautista MD [address] [facility] Aminata [place] [address] PCP - General Family Practice 05/31/21 Refugio Davidson RN Cancer Nurse Coordinator Registered Nurse 09/19/20 Elenita Dietrich MD [address] [facility] Jeredsoniya [place] [address] Oncology Oncology 10/02/20 Brianna La, LINUX PROGRAMMER [address] [place] [address] Oncology Oncology 10/02/20 Reyna Alonso, LINUX PROGRAMMER [address] [place] [address] Nurse Practitioner - Mental Health 07/08/22 Carolina Mathur, PsYasmani, LP [address] [place] [address] Psychology 07/16/22 [facility] [address] [place] [address] 09/09/23
--- OUTSIDE RECORDS SUMMARY | 2023-11-27 09:26 | XMS_ITS | Data Portability ---
Author Organization [facility], [facility] Address [address] [place] [address] Assessment Encounter Date Assessment Date Assessment LastModified by Organization Details LastModified Time 11/26/2020 11/26/2020 Of note a total of 15 minutes was spent reviewing records and in discussion with patient, >50 % of which was in coordination and counseling. [email or web address] Not available 11/26/2020 12:23:56 Plan of Treatment Reminders Order Date Submit Date Provider Last Modified By Organization Details Last Modified Time Details Appointments None record ed. Lab None record ed. Referral None record ed. Procedures None record ed. Surgeries None record ed. Imaging None record ed. Medication Orders None record ed. Patient TargetsNo targets recorded. Patient Instructions Encounter Date Encounter Id Patient Instructions Last Modified By Organization Details Last Modified Time 11/26/[id number] Removed stent without issue Explained need to keep a large water intake in play for next yr willis during lymphoma Rx. [email or web address] Not available 11/26/2020 12:23:45 Reason for Referral None Reported. Medical Equipment None Reported. Allergies Allergen ID Allergen Name Allergen Category Reaction Reaction Severity Criticality Documentation Date Start Date Code Code System Note Provider Name and Address Organization Details Recorded Time 408165 gabapenti n medicatio n Not available Not available Not available 11/26/2020 30781 RxNorm Quinn jimenez [facility] 12:04:11 [id number] codeine medicatio n Not available Not available Not available 11/26/2020 2670 RxNorm Quinn jimenez [facility] 12:04:15 Medications Name Sig Start Date Stop Date Status Note LastModified by Organization Details LastModified Time lidoc/sm al/rox SWISH AND SPIT OR SWALLOW 10MLS FOUR TIMES DAILY 30 MINUTES BEFORE MEALS. active Not Available Not Available No t Available Lidocaine Viscous 2 % mucosal solution active Not Available Not Available Not Available fluconazole 150 mg tablet TAKE ONE TABLET BY MOUTH ONE TIME FOR ONE DOSE. MAY REPEAT DOSE IN 72 HOURS IF NEEDED active Not Available Not Available No t Available ondansetron HCl 8 mg tablet TAKE ONE TABLET BY MOUTH EVERY 8 HOURS NEEDED FOR NAUSEA / VOMITING active Not Available Not Available No t Available rizatriptan 10 mg tablet TAKE ONE TABLET BY MOUTH TWICE A DAY IF NEEDED FOR MIGRAINE. GIVE AT MINIMUM 24HRS APART. active Not Available Not Available No t Available prochlorpera zine maleate 10 mg tablet TAKE ONE TABLET BY MOUTH EVERY 6 HOURS NEEDED FOR NAUSEA / VOMITING active Not Available Not Available No t Available acyclovir 400 mg tablet TAKE ONE TABLET BY MOUTH TWICE A DAY active Not Available Not Available No t Available sulfamethoxa zole 800 mg-trimethop rim 160 mg tablet TAKE ONE TABLET BY MOUTH EVERY THURSDAY, THURSDAY AND THURSDAY active Not Available Not Available N ot Available lidocaine-pr ilocaine 2.5 %-2.5 % topical cream APPLY 5G TOPICALLY TO AFFECTED AREA(S) ONE TIME FOR ONE DOSE. APPLY A QUARTER SIZE AMOUNT TO PORT AREA 30-45 MINUTES PRIOR TO PORT ACCESS active Not Available Not Available Not Available oxycodone-ac etaminophen 5 mg-325 mg tablet TAKE ONE TABLET BY MOUTH EVERY 4 HOURS NEEDED, MAX ACETAMINOPH EN DOSE 4000MG PER 24 HOURS active Not Available Not Available No t Available tamsulosin 0.4 mg capsule active Not Available Not Available Not Available cephalexin 500 mg capsule TAKE ONE CAPSULE BY MOUTH THREE TIMES A DAY FOR 7 DAYS active Not Available Not Available N ot Available dexamethason e 4 mg tablet TAKE TWO TABLETS BY MOUTH ONCE DAILY WITH A MEAL. TAKE FOR 2 DAYS. STARTING DAY AFTER CHEMOTHERAP Y active Not Available Not Available No t Available magnesium citrate oral solution DRINK CONTENTS OF ONE BOTTLE (296ML) ONE TIME FOR ONE DOSE active Not Available Not Available No t Available allopurinol 300 mg tablet TAKE ONE TABLET BY MOUTH EVERY DAY active Not Available Not Available No t Available levofloxacin 500 mg tablet active Not Available Not Available Not Available clotrimazole 1 % topical cream APPLY TOPICALLY TO AFFECTED AREA(S) TWO TIMES A DAY FOR 28 DAYS, APPLY UP TO 1 CENTIMETER BEYOND THE BORDER OF THE AFFECTED AREA, APPLY FOR active Not Available Not Available No t Available amoxicillin 875 mg-potassium clavulanate 125 mg tablet TAKE ONE TABLET BY MOUTH TWICE A DAY WITH MEALS FOR 7 DAYS active Not Available Not Available No t Available oxycodone 5 mg tablet TAKE ONE TO TWO TABLETS BY MOUTH EVERY 4 HOURS NEEDED FOR PAIN active Not Available Not Available No t Available cyclobenzapr ine 5 mg tablet TAKE ONE TABLET BY MOUTH THREE TIMES A DAY NEEDED FOR MUSCLE SPASM active Not Available Not Available No t Available bupropion HCl XL 150 mg 24 hr tablet, extended release TAKE ONE TABLET BY MOUTH EVERY MORNING active Not Available Not Available No t Available topiramate 50 mg tablet TAKE ONE TABLET BY MOUTH TWICE A DAY active Not Available Not Available No t Available nitrofuranto in monohydrate/ macrocrystal s 100 mg capsule TAKE ONE CAPSULE BY MOUTH TWICE A DAY FOR 5 DAYS active Not Available Not Available No t Available Vitals Date Recorded Body height Body mass index (BMI) Body weight Provider Name and Address Organization Details Last Updated DateTime 11/26/2020 175.26 cm 23.6 kg/m2 11674.78 g Quinn Jesica [facility] 11/26/2020 12:04:03 Social History Question Answer Notes LastModified by Organizat ion Details LastModified Time Tobacco Smoking Status Former Smoker Quinn Mooney [facility] 11/26/2020 12:05:13 What Was The Date Of Your Most Recent Tobacco Screening? 11/26/2020 [email or web address] Information not available 11/26/2020 Sex: Unknown Functional Status None recorded. Mental Status None recorded. Family History Relationship Description Onset Age of this Age Resolved Age Notes Maternal Grandmother Family history of breast cancer Paternal Grandmother Family history of breast cancer Paternal Grandfather Family history of cancer of colon Maternal Grandfather Family history of malignant neoplasm of prostate Medical History Condition Response Diabetes N High Blood Pressure N Cancer Kidney Stones Y High Cholesterol N Gynecological HistoryNo gynecological history recorded. Obstetrics History GPAL:G 0 P 0 0 0 0 Past Encounters Encounter ID Performer Location Encounter Start Date Encounter Closed Date Diagnosis/Indication Diagnosis SNOMED-CT Code [id number] Quinn [facility] [address] [place] [id number] 11/26/2020 11:11:03 11/28/2020 10:12:30 Kidney stone [id number] Health Concerns Section Related Observation LastModified by Organization Detai ls LastModified Time None Recorded Concern Status LastModified by Organization Details LastModified Time None Recorded Advance Directives Directive None Recorded Payers Encounter Date Sequence Insurance Name Policy Number Policy Haley Covered Member ID Haley Member ID Guarantor Name 11/26/2020 1 BS-[place] (MEDICAID REPLACEMENT - HMO) [id number] Brianna Cheema [id number] Brianna Cheema Notes Date Note Type Note Provider Name and Address Organization Details Recorded Time 11/26/2020 text/html HPI Notes: 620- 20 s/p Right ureteroscopy Here for her stent removal; currently being treated for lymphoma ANTONIO Rangel [facility] 11/26/2020 12:24:33 OBGyn Episode No OBEpisode recorded.
--- OUTSIDE RECORDS SUMMARY | 2023-11-27 09:26 | XMS_ITS | Referral Summary ---
Author Organization [facility] Address [address] [place] [address] Care Team Providers Care Child Nutrition Director Name Role Phone Brianne Kay M.D. Primary Care Provider Source Comments Patient records contain information from all sites at [facility]. For routine questions regarding patient records, call [phone] during business hours, M-F 8:00 AM - 5:00 PM Central Time. Record requests for emergency care only can be directed to [phone] at any time.[facility] Encounters Date Type Department Care Team Description 11/12/2023 Orders Only Department of Oncology in [address] [phone] Constanza Regalado M.D. Malignant Neoplasm Of Overlapping Sites Of Left Female Breast (HCC) (Primary Dx) from Last 3 Months Allergies Active Allergy Reactions Criticality Noted Date Comments Codeine Hives (Reselect Reaction),Rash 10/05/2012 Gabapentin Other (see comments) [...] 01/29/2021 Dysthymia 10/09/2010 Overview: Depression with anxiety Immunizations Name Administration Dates Next Due Influenza Split 02/02/2012 Influenza, Unspecified 07/06/2015,2011,03/12/2011,2009 SARS-COV-2 (COVID-19) - PFIZ ER BIVALENT TS(Discontinued)(12 YEARS OR OLDER) 03/13/2022 Td (Adult), adsorbed 03/01/2010 Tdap 12/14/2012,09/23/2010 influenza vaccine quad (FLUZONE/FLUARIX) (6 months and older)(PF) 03/13/2022,02/12/2021,02/10/2020,2015,07/06/2015 Social History Tobacco Use Types Packs/Day Years [...] any clubs o r organizations such as pentecostal groups, unions, fraternal or athletic groups, or [...] Answer Date Recorded PHQ-2 Score 4 06/08/2022 [facility] - Occupational Stress Questionnaire Answer Date [...] place to sleep or slept in a snf (including now)? No 07/29/2022 Depression Answer Date [...] Comments Blood Pressure 165/91 04/10/2023 2:01 PM STUDENT WORKER Pulse 80 04/10/2023 2:01 PM STUDENT WORKER Temperature 36.1 ??C (97 ??F) 04/10/2023 2:01 PM STUDENT WORKER Respiratory Rate 24 09/03/2022 2:33 PM CDT Oxygen Saturation 96% 09/03/2022 2:33 PM CDT Inhaled Oxygen Concentration - - Weight 104 kg (229 lb 4.5 oz) 04/10/2023 2:01 PM STUDENT WORKER Height 175.3 cm (5' 9) 04/10/2023 8:12 AM STUDENT WORKER Body Mass Index 33.86 04/10/2023 8:12 AM STUDENT WORKER Plan of Treatment Not on file Medical Devices Implanted Type Area Production Line Manager Device Identifier Shelf Expiration Date Model / Serial / Lot Mrk Brst Biop Ate Trm - [id number] Implanted:Qty: 1 on 04/04/2021 at [facility] [employer] Imaging Marker Left: Breast [employer] [id number] 11/05/2022 TRIMARKTD 13-MR / / [id number] Implantable Port-10/08/2020 Implanted:09/16 (Quantity not on file) Implantable Port Left: Chest Description:Care Everywhere: [facility] [email or web address] [facility]: Medical Devices: Power Port Isp Mri 6fr [id number] - [id number] Implanted: Qty: 1 on 10/08/2020 by Esa Palomo MD at [facility] ?? Left: Chest [employer] Intrauterine Device Intrauterine Device Uterus Description:Mirena IUD Procedures Procedure Name Priority Date/Time Associated Diagnosis Comments EXTI BASIC METABOLIC PANEL, S/P Routine 08/21/2023 12:05 PM CDT BI BREAST SCREENING BILATERAL WITH TOMOSYNTHESIS RAD - Routine (most inpatients and all outpatients) 06/03/2023 8:38 AM STUDENT WORKER HIV-1/-2 AG AND AB SCREEN, PLASMA Routine 07/30/2022 1:18 PM CDT Screening For Venereal Disease HPV WITH GENOTYPING, PCR, THINPREP Routine 05/28/2022 2:46 PM STUDENT WORKER EXTI LIPID PANEL W REFLEX MEASURED LDL Routine 02/10/2020 8:20 AM CDT from Last 3 Months or Most Recently Relevant to Health Maintenance Results * HIV-1/-2 Ag and Ab Screen, Plasma (07/30/2022 1:18 PM CDT) Pathologist [facility] HIV-1/-2 Ag and Ab Screen, P Negative Negative 07/30/2022 8:17 PM CDT [facility] Comment: Negative result does not rule out HIV infection. If exposure to HIV infection occurred <14 days ago, contact the laboratory to request addition of HIV-1 RNA detection / quantification test (HIVQN). Blood (Blood, Venous) 07/30/2022 1:18 PM CDT 07/30/2022 5:58 PM CDT Pallavi Ravi APRN, C.N.P. LAB MICROBIO LOGY - BLOOD ORDERABLES [facility] [address] [place] [address] [facility] [address] [place] [address] * (ABNORMAL) HPV with Genotyping, PCR, ThinPrep (05/28/2022 2:46 PM STUDENT WORKER) Specimen Source Thin Prep Vial, Cervix/Endoc ervix 06/02/2022 2:23 PM STUDENT WORKER DTL HPV High Risk type 16, PCR Negative Negative 06/02/2022 2:23 PM STUDENT WORKER DTL HPV High Risk type 18, PCR Negative Negative 06/02/2022 2:23 PM STUDENT WORKER DTL HPV other High Risk types, PCR Positive(A) Negative 06/02/2022 2:23 PM STUDENT WORKER DTL Comment: Positive for one or more of the following Other High Risk HPV types: 31, 33, 35, 39, 45, 51, 52, 56, 58, 59, 66, and 68 This test was ordered in the context of a [facility] TURF SALES PERSON Cytology case; this result should be interpreted within the context of the TURF SALES PERSON cytology report. 05/28/2022 2:46 PM STUDENT WORKER 05/29/2022 8:29 AM STUDENT WORKER Edvin Marcelo APRNNNatashaPNatasha LAB MICROBIO LOGY - GENERAL ORDERABLES [facility] [address] [place] [address], [facility] [address] [place] [address] from Last 3 Months or Most Recently Relevant to Health Maintenance Care Teams Child Nutrition Director Relationship Specialty Start Date End Date Brianne aKy M.D. [address] [place] [address] [place] [phone] PCP - General 06/28/20
--- OUTSIDE RECORDS SUMMARY | 2023-11-27 09:26 | XMS_ITS | Continuity of Care Document ---
Author Organization [facility] Address [address] [place] [address] Phone Care Team Providers Care Senior Patrol Agent Name Role Phone Jerald Bartlett PA-C Unavailable Unavailable Allergies, Adverse Reactions, Alerts Substance Reaction Status Criticality nortriptyline Active No Information codeine rash Active No Information gabapentin hairloss Active No Information Medications Medication Instructions Dosage Effective Dates (start - stop) Status Comments methocarbamol 500 mg tablet Take 2 tablets every 4-6 hours as needed. - Active oxycodone 5 mg tablet take 1 by Oral route every 6 hours per day for G89.18 Acute postoperative pain. - Active MODAFINIL (unknown strength) Not Available - Active PROZAC (unknown strength) Not Available - Active LUNESTA (unknown strength) Not Available - Active BUPROPION HCL (unknown strength) Not Available - Active Procedures Procedure Date Postop Followup Visit ACDF - Anterior Cervical Discectomy and Fusion - PA ACDF - Additonal Level - PA PEEK/ Cage/ Implant, For Interbody Fusio n - PA Anterior Instrumentation, 2-3 Segments - PA ACDF - Anterior Cervical Discectomy and Fusion ACDF - Additonal Level(s) PEEK/ Cage/ Implant, For Interbody Fusio n Anterior Instrumentation, 2-3 Segments A Autograft, From Same Incision Apr-23-202 4 Office/Outpatient Visit,New, Mod 2023 Office/Outpatient Visit,Est, Mod 2015 Office/Outpatient Visit,New, Mod 2015 Advance Directives Directive Yes / No Effective Date File Name No Information Encounters Encounter Description Practice Location Reason(s) For Visit Diagnoses Date Provider Providers Copied on Encounter [facility], [address], [place], [place], [id number] , [place] tel: [phone] [facility] Encounter for other specified surgical aftercare 4 Dhruv Marques. [facility], [address], [address], [place], [address], [place]. tel: [phone] Referring Provider: Yesenia Howard, [place] [address] [place], [address]. tel:[phone] [facility], [address], [place], [place], [id number] , [place] tel: [phone] [facility] No Information 4 Aileen Alarcon. [facility], [address], [place], [place], [id number] , [place]. tel: [phone] [facility], [address], [place], [place], [id number] , [place] tel: [phone] [facility] No Information 4 Dhruv Marques. [facility], [address], [address], [place], [address], [place]. tel: [phone] Referring Provider: Yesenia Howard, [place] [address] [place] [address], [address]. tel:[phone] [facility], [address], [place], [place], [id number] , [place] tel: [phone] [facility] No Information 4 Aileen Alarcon. [facility], [address], [place], [place], [id number] , [place]. tel: [phone] Referring Provider: Yesenia Howard, [facility] [address] [place], [address]. tel:[phone] Office/Outpat ient Visit,New, Mod [facility], [address], [place], [place], [id number] , [place] tel: [phone] [facility] Spinal stenosis, cervical regionLymphoma Jul-2 0 4 Aileen Alarcon. [facility], [address], [facility] [place], [id number] , [place]. tel: [phone] Referring Provider: Xi Ralph, [address], [address]. tel:[phone] Office/Outpat ient Visit,Est, Mod [facility], [address], [facility] [place], [id number] , [place] tel: [phone] [facility] Spinal stenosis, cervical regionOther spondylosis, cervical region 6 Aileen Alarcon. [facility], [address], [facility] [place], [id number] , [place]. tel: [phone] Referring Provider: Yesenia Howard, [facility] [address] [place], [address]. tel:[phone] Office/Outpat ient Visit,New, Mod [facility], [address], [place], [place], [id number] , [place] tel: [phone] [facility] Spinal stenosis, cervical regionOther intervertebral disc degeneration, lumbar region 6 Aileen Alarcon. [facility], [address], [facility] [place], [id number] , [place]. tel: [phone] Referring Provider: Yesenia Howard, [facility] [address] [place], [address]. tel:[phone] Family History Family Member Type Diagnosis Age At Onset Problem (finding) Problem (finding) Mother Problem (finding) Depression Sister Problem (finding) Scoliosis Problem (finding) Brother Problem (finding) Depression Problem (finding) Mother Problem (finding) Cardiovascular disease Payers Payer name Insurance type Covered green party ID Authoriza tion(s) [employer] Medicare Gold Choice [facility] [id number] [employer]BS [place] Blue [place] BL [id number] Social History Type Description Quantity Date Captured Comments Alcohol Use Details Unknown Caffeine Use Details Unknown Tobacco Use Status Light cigarette smok er (1-9 cigs/day) Smoking Status Light tobacco smoker Smoking Tobacco Use Details Cigarette: No Details Available Cigarette: 3 Cigarettes per day Sex Female Vital Signs Date / Time: Height Weight BMI Pulse Rate Blood Pressure Temperature Respiratory Rate Body Surface Area Head Circumference Head Circ. Percentile Wt./Tirso. Percentile BMI percentile Pulse Ox Inhaled Ox 3:19 PM 69.00 in 107.955 kg (238.00 lbs) 35.1 5 kg/m eter (2) Chief Complaint And Reason For Visit No Information Reason For Referral Reason For Referral No Information Plan Of Treatment Date Type Action Status Appointment Brianna Cheema BOOKED History Of Present Illness Encounter Date Complaint History Of Prese nt Illness No Information Functional Status Date Functional Assessmen t No Information Instructions Date Instruction Additional Infor mation Weight Management Education Rela codey to Overweight Weight management: I nstructed to return to General Practitioner timeframe: 1 Month. Related to Overweight Assessments Type Assessment Date assessment Encounter for other specified dixon rgical aftercare Patient Care Teams Name Effective Dates (start - stop) Status Members No Information
--- OUTSIDE RECORDS SUMMARY | 2023-11-27 09:26 | XMS_ITS ---
Author Organization [facility] Address [address] [place] [address] Care Team Providers Care Soil Technologist Name Role Phone Brianne Kay M.D. 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 Past Plans Flushes/Hydration Plan Name Start Date Discontinue Date Treatment Medications Discontinue Reason Plan Provider VASCULAR ACCESS PATENCY - IMPLANTED VASCULAR ACCESS DEVICE (IVAD) VENOUS NON-VALVED 08/27/2022 08/28/2023 No medications scheduled. Therapy Complete - VASCULAR ACCESS PATENCY - IMPLANTED VASCULAR ACCESS DEVICE (IVAD) VENOUS NON-VALVED 01/29/2021 01/30/2022 No medications scheduled. Therapy Complete - Infusion Therapy 1 Plan Name Start Date Discontinue Date Treatment Medications Discontinue Reason Plan Provider TIXAGEVIMAB-CILGA VIMAB (EVUSHELD) - EMERGENCY USE AUTHORIZATION 08/10/2021 08/16/2021 No medications scheduled. Therapy Complete Vahe Roque M.D. Radiation Treatments * No radiation treatments are documented for this patient in [facility]. Treatments may have been administered in another system.
--- OUTSIDE RECORDS SUMMARY | 2023-11-27 09:26 | XMS_ITS | Encounter Summary ---
Author Organization [facility] Address [address] [place] [address] Care Team Providers Care Container Washer Name Role Phone Brianne Kay M.D. Primary Care Provider Reason for Visit * Reason Onset Date Comments External Lab Entry 07/20/2023 Encounter Details Date Type Department Care Team (Latest Contact Info) Description 07/20/2023 Clinical Communication Division of Hematology in [place], [place] [address] [place] [address] Vahe Roque M.D. [address] [place] [address] External Lab Entry Social History Tobacco Use Types Packs/Day Years [...] often do you attend chur ch or temple services? Never 07/29/2022 Do you belong to any clubs o r organizations such as advent groups, unions, fraternal or athletic groups, or [...] Answer Date Recorded PHQ-2 Score 4 06/08/2022 [facility] Answer Date Recorded [...] place to sleep or slept in a care home (including now)? No 07/29/2022 Depression Answer Date [...] PM CDT documented as of this encounter Miscellaneous Notes * Telephone Encounter - Karen William - 07/20/2023 10:40 AM CST Images from the original note were not included. IgG (529) outside labs collected on 07/15/2023 have been received. The fax has been scanned into thepatient record via [email or web address]. See comment that was on fax: CTOR OF MUSIC THERAPY documented in this encounter Plan of Treatment Not on file documented as of this encounter Procedures Procedure Name Priority Date/Time Associated Diagnosis Comments EXTM IMMUNOGLOBULIN G (IGG), S Routine 07/20/2023 documented in this encounter Results * EXT Immunoglobulin G (IgG) (07/20/2023) EXT Immunoglobulin G (IgG), S 529 OTHER (SPECIFY IN HOME LIGHTING ADVISER) Blood (Blood, Venous) 07/20/2023 Historical Provider LAB BLOOD ADD-ON OTHER (SPECIFY IN HOME LIGHTING ADVISER) N/A documented in this encounter Visit Diagnoses Not on filedocumented in this encounter Additional Health Concerns Assessment Noted Time PHQ-9 Depression Total Score: 18 023 2:49 PM DIRECTOR OF MUSIC THERAPY documented as of this encounter Care Teams Container Washer Relationship Specialty Start Date End Date Brianne Kay M.D. NPIsaac: [phone] [address] [place] [phone] PCP - General 06/28/20 documented as of this encounter
--- NOTE | 2023-11-27 10:00 | CRLHL7_ITS ---
For Patients: As a result of the Century Cures Act, medical imaging exams and procedure reports are released immediately into your electronic medical record. You may view this report before your referring provider. If you have questions, please contact your health care provider. INDICATION: Six-month follow-up non-Hodgkin`s lymphoma. TECHNIQUE: CT chest, abdomen and pelvis acquired with 114 mL Isovue 370 IV contrast. COMPARISON: Outside 04/10/2023 chest abdomen pelvis CTs, outside 09/08/2022 PET-CT FINDINGS: CHEST: Cardiovascular structures: Heart size is normal. Thoracic aorta and main pulmonary artery are normal in caliber. Mediastinum and chidi: No mass or adenopathy. Lungs and pleura: Benign calcified granulomas in both lungs. Chest wall and axilla: No mass or adenopathy. Bones: No suspicious bone lesions. Unremarkable for age. ABDOMEN AND PELVIS: Liver: Tiny low-density lesion in the dome is too small to be characterize is unchanged and should be benign. Gallbladder and bile ducts: Unremarkable. Pancreas: Unremarkable. Spleen: Unremarkable. Adrenal glands: Unremarkable. Kidneys: Punctate nonobstructing stones in both kidneys, unchanged. GI tract: Unremarkable. Vascular structures: Unremarkable. Lymph nodes: Unremarkable. Miscellaneous: Unremarkable. No free air or significant free fluid. Pelvic Organs: IUD in the uterus. Bones: No suspicious bone lesions. Unremarkable for age. IMPRESSION: 1. No evidence for recurrent disease. 2. Stable bilateral nephrolithiasis. Please note that all CT scans at this facility use dose modulation, iterative reconstruction, and/or weight-based dosing when appropriate to reduce radiation dose to as low as reasonably achievable. Dictated by Alexey Mascorro MD @ 12/01/2023 8:59:50 AM (Electronically Signed)
== END 2023-11-27 09:23 | disposition home or self-care (01) ==
LOC: CT 09:23
PROVIDERS: PCP Family Medicine; Visit Provider Clinical Nurse Specialist
DX: C85.90 Non-Hodgkin lymphoma, unspecified, unspecified site (principal); N20.0 Calculus of kidney; R63.4 Abnormal weight loss
CPT/HCPCS: 71260; 74177; Q9967

== ENCOUNTER 2024-04-28 12:19 | Outpatient (RCR) | payer OTHER, MEDICAID, SELFPAY ==
[2024-04-28 12:57] LABS: Hemoglobin* 13.7 gm/dL (12.0-16.0); Lymphocytes Percent Auto 19.8 % (20-44); Mean Corpuscular HGB Conc 33 gm/dL (32-36); Mean Corpuscular Hemoglobin 31 pg (26-34); Mean Corpuscular Volume 94 fL (80-100); Platelet Count* 293 K/uL (140-440); RDW Coefficient of Variation % 11.8 % (11.5-15.5); Red Blood Count 4.49 m/uL (4.00-5.20); White Blood Count* 4.84 K/uL (4.50-11.00)
[2024-04-28 12:58] LABS: Basophils Absolute Auto 0.05 K/uL (0.00-0.30); Eosinophils Absolute Auto 0.05 K/uL (0.00-0.50); Immature Granulocytes Abs Auto 0.01 K/uL (0.00-0.30); Immature Granulocytes Pct Auto 0.2 %; Neutrophils Absolute Auto 3.43 K/uL (1.7-7.0)
[2024-04-28 13:05] LABS: Slide Review Reflex No
[2024-04-28 13:08] LABS: Albumin* 4.4 g/dL (3.3-5.0); Chloride* 107 mmol/L (96-114); Potassium* 4.1 mmol/L (3.6-5.1); Sodium* 137 mmol/L (135-149)
[2024-04-28 13:10] LABS: Anion Gap 8 mEq/L (7-15); Aspartate Amino Transferase* 23 U/L (12-35); Bilirubin Total* 0.3 mg/dL (0.1-1.5); Carbon Dioxide* 22 mmol/L (20-32); Creatinine* 0.7 mg/dL (0.5-1.5); Estimated Glomerular Filt Rate 104 ml/min; Total Protein* 7.8 g/dL (6.0-8.3)
[2024-04-28 13:11] LABS: Alanine Aminotransferase* 25 U/L (4-35); Alkaline Phosphatase* 124 U/L (40-150); Blood Urea Nitrogen* 12 mg/dL (7-30); Calcium* 9.3 mg/dL (8.4-10.6); Glucose* 102 mg/dL (60-115); Lactate Dehydrogenase* 158 U/L (120-246)
== END 2024-10-25 23:59 | disposition home or self-care (01) ==
LOC: CCIC 12:19
PROVIDERS: PCP Family Medicine; Referring Provider Family Medicine; Visit Provider Internal Medicine Hematology & Oncology
DX: C85.90 Non-Hodgkin lymphoma, unspecified, unspecified site (principal)
CPT/HCPCS: 36415; 80053; 83615; 85025; 99213; 99214; G0463

== ENCOUNTER 2024-12-29 15:03 | Outpatient (CLI) | payer MEDICARE, BC, SELFPAY ==
--- NOTE | 2024-12-29 15:30 | CRLHL7_ITS ---
For Patients: As a result of the 21st Century Cures Act, medical imaging exams and procedure reports are released immediately into your electronic medical record. You may view this report before your referring provider. If you have questions, please contact your health care provider. EXAM: FDG PET-CT Skull Base to Thighs CLINICAL INFORMATION: 54-year-old woman with history of lymphoma. Restaging TECHNIQUE: Radiopharmaceutical: 18F-fluorodeoxyglucose (18F-FDG) Dose: 12.16 milliCurie. Blood glucose: 80 mg/dL. Image acquisition: At approximately 60 minutes following IV tracer administration via a left hand vein, positron emission tomography was performed from the skull base through the mid thigh. Non-contrast low-dose helical CT imaging was performed over the same range without breath-hold for attenuation correction of PET images and anatomic correlation; it is neither sufficient, nor should it be substituted for diagnostic purposes. COMPARISON: Outside [facility] FDG PET-CT 09/08/2022. CT chest abdomen/pelvis 11/27/2023. FINDINGS: Due to technical differences between PET-CT scanners between different institutions, SUVmax values can not be directly compared with the prior study. Mediastinal blood pool FDG uptake: SUVMax 2.9 (Image 90) Liver background parenchymal FDG uptake: SUVMax 3.7 (Image 131) PET Findings: No abnormal FDG avid lymphadenopathy. No abnormal FDG uptake in the visualized skeleton. New diffusely increased FDG uptake in the larynx at the true vocal cords and in the decompressed proximal upper esophagus SUVMax 10.3 (301:58, 202:59). Diffusely increased intense bowel loop uptake along the entire colon and rectum, as well as in small bowel loops in the pelvis, without evidence of bowel wall thickening or pericolonic stranding. Tracer uptake elsewhere is physiologic. Non-PET findings: Sequela of granulomatous disease. Punctate non-obstructive calyceal stones in the bilateral kidneys. Anterior cervical fusion hardware at C5-C7. Multilevel degenerative changes in the spine. IMPRESSION: 1. No evidence of metabolically active lymphoma. Deauville 1. 2. New diffusely increased FDG uptake in the larynx at the true vocal cords and in the decompressed proximal upper esophagus is likely inflammatory. This may represent sequela of recent vomiting, given clinical history. If clinically indicated, suggest gastroenterology consult and direct inspection with endoscopy. Deauville X. 3. Diffusely increased intense bowel loop uptake along the entire colon and rectum, as well as in small bowel loops in the pelvis, without evidence of inflammatory changes on CT. Differential considerations include medication related uptake such as from metformin, early enterocolitis, or physiologic uptake. Correlate with medication history, and with patient`s symptoms. Kwasi X. Deauville 5-point Scale (most intense uptake in a site of initial disease): 1. No uptake; 2. Uptake less than or equal to mediastinal blood pool; 3. Uptake < mediastinal blood pool but less than or equal to liver; 4. Uptake moderately higher than liver; 5. Uptake markedly higher than liver and/or new lesions; X. New areas of uptake unlikely to be related to lymphoma. Dictated by Jones Rios MD @ 12/31/2024 11:19:17 AM (Electronically Signed)
== END 2024-12-29 15:04 | disposition home or self-care (01) ==
LOC: RAD 15:06
PROVIDERS: PCP Family Medicine; Visit Provider Internal Medicine Hematology & Oncology
DX: C85.90 Non-Hodgkin lymphoma, unspecified, unspecified site (principal); C85.85 Other specified types of non-Hodgkin lymphoma, lymph nodes of inguinal region and lower limb; C85.91 Non-Hodgkin lymphoma, unspecified, lymph nodes of head, face, and neck
CPT/HCPCS: 78815; A9552